=== PATIENT | male | born 1960 | race Caucasian/White ===

== ENCOUNTER 2016-05-28 08:23 | Day surgery (SDC) | payer MEDICARE ==
[2016-05-26 11:03] VITALS: BMI 33.0
[~2016-05-28 08:23] MED LIST: LACTATED RINGERS 1,000 ML IV SCH; LIDOCAINE 1% 20 ML VIAL (10MG/ML) FOR IV START INTRADERMA PRN
[2016-05-28 08:54] VITALS: RESP 18; TEMP 98
[2016-05-28] MEDS ORDERED: LIDOCAINE 1% 20 ML VIAL (10MG/ML) FOR IV START INTRADERMA ONE (08:54)
[2016-05-28] MEDS ORDERED: LACTATED RINGERS 1,000 ML IV ONE (08:54)
[2016-05-28] MEDS ORDERED: PROPOFOL 10 MG/ML 20 ML VIAL IV ONE (09:18)
[2016-05-28] MEDS ORDERED: LIDOCAINE 1% INJ 10MG/ML (20 ML MDV) ONE (09:18)
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
--- NOTE | 2016-05-28 09:39 | P.OP ---
Date of Procedure: 05/28/16 Preoperative Diagnosis: Screening colonoscopy Postoperative Diagnosis: Diverticulosis Rectal polyp Procedure(s) Performed: Colonoscopy Anesthesia: MAC Surgeon: Nelson Doe Pathology: other (Rectal polyp) Condition: stable Disposition: PACU Description of Procedure: The patient's placed on the endoscopy table in the lateral position. He received IV sedation. Digital rectal exam was performed which revealed no abnormalities. The flexible colonoscope was then placed patient anus and passed throughout the entire colon. The ileocecal valve was visualized. The cecum, ascending and transverse colon appeared normal. In the descending and sigmoid colon there were diverticular changes. The scope was then brought back the rectum and a peduncular polyp was visualized. This was removed with snare. Scope was then withdrawn from patient.
[2016-05-28 10:25] VITALS: BP 111/77; PULSE 67
== END 2016-05-28 10:37 | disposition home or self-care (01) ==
LOC: ORWHC2ENDO 08:23
PROVIDERS: ATTEND Surgery
DX: Z12.11 Encounter for screening for malignant neoplasm of colon (principal); K62.1 Rectal polyp; K57.30 Diverticulosis of large intestine without perforation or abscess without bleeding; I10 Essential (primary) hypertension; Z79.899 Other long term (current) drug therapy; Z87.891 Personal history of nicotine dependence
CPT/HCPCS: 45385; 88305; J2001; J2704

== ENCOUNTER 2023-12-25 22:33 | Emergency (ER) | payer MEDICARE ==
[2023-12-25 22:46] VITALS: TEMP 98.5
[2023-12-26 03:23] VITALS: RESP 18
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
[2023-12-26 05:17] VITALS: BP 106/78; PULSE 78
== END 2023-12-26 05:17 | disposition home or self-care (01) ==
LOC: EC 22:33
DX: F10.129 Alcohol abuse with intoxication, unspecified (principal)
CPT/HCPCS: 99284

== ENCOUNTER 2024-01-13 01:57 | Emergency (ER) | payer MEDICARE ==
[2024-01-13] MEDS ORDERED: LORazepam 2 MG/ML INJ IV PRN ×3 (02:05)
[2024-01-13 02:09] LABS: Glucose,Whole Blood 149 mg/dL (70-110)
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
--- NOTE | 2024-01-13 02:31 | XR ---
EXAM: XR Chest, 1 View CLINICAL HISTORY: ITS.REASON XR Reason: trauma TECHNIQUE: Frontal view of the chest. COMPARISON: No relevant prior studies available. FINDINGS: Lungs: Diminished lung volumes. No significant ulnar contusive injury with minimal curvilinear changes in the lateral right midlung zone. Pleural space: A small right pleural effusion is noted inferolaterally. No left pleural effusion. No obvious pneumothorax; evaluation is somewhat limited by supine technique. Heart: The cardiac silhouette is presumed mildly accentuated by portable technique. Suspect normal variation. Mediastinum: No mediastinal widening, accounting for obliquity. No tracheal deviation. Bones/joints: No obvious displaced right rib fracture identified. IMPRESSION: 1. A small right pleural effusion is noted inferolaterally. No left pleural effusion. No obvious pneumothorax; evaluation is somewhat limited by supine technique. 2. No obvious displaced right rib fracture identified. However, given the right pleural effusion, there is rib tenderness, dedicated rib series or cross-sectional imaging is recommended. 3. Diminished lung volumes. Minimal curvilinear presumed atelectasis in the right midlung zone. No definite pulmonary contusive injury.
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
[2024-01-13] MEDS: SODIUM CHLORIDE 0.9% 1,000 ML IV STA (02:47)
[2024-01-13 02:49] LABS: Basophils # (A) 0.1 k/uL (0-0.2); Basophils % (A) 1 %; Eosinophils # (A) 0.5 k/uL (0-0.7); Eosinophils % (A) 6 %; HGB 15.9 gm/dL (13.0-17.5); Lymphocytes # (A) 3.1 k/uL (1.0-4.8); Lymphocytes % (A) 38 %; MCH 31.1 pg (25.0-35.0); MCHC 33.8 g/dL (31.0-37.0); MCV 92.1 fL (80.0-100.0); Monocytes # (A) 0.3 k/uL (0-1.0); Monocytes % (A) 4 %; Neutrophils % (A) 49 %; Platelet Count 277 k/uL (150-450); RBC 5.11 m/uL (4.30-5.90); RDW 13.8 % (11.5-15.5); WBC 8.2 k/uL (3.8-10.6)
--- NOTE | 2024-01-13 02:53 | CT ---
EXAM: CT Head Without Intravenous Contrast CLINICAL HISTORY: trauma TECHNIQUE: Axial computed tomography images of the head/brain without intravenous contrast. CTDI is 17.2 mGy and DLP is 548.8 mGy-cm. This CT exam was performed using one or more of the following dose reduction techniques: automated exposure control, adjustment of the mA and/or kV according to patient size, and/or use of iterative reconstruction technique. COMPARISON: No relevant prior studies available. FINDINGS: Brain: Unremarkable. No hemorrhage. No significant white matter disease. No edema. Ventricles: Unremarkable. No ventriculomegaly. Bones/joints: Unremarkable. No acute fracture. Soft tissues: No significant overlying acute traumatic soft tissue abnormality. No radiopaque foreign body. Sinuses: Mucosal thickening involving the inferior frontal sinuses and several anterior ethmoid air cells. No traumatic effusions. Mastoid air cells: Unremarkable as visualized. No mastoid effusion. IMPRESSION: No acute intracranial process identified. EXAM: CT Cervical Spine Without Intravenous Contrast CLINICAL HISTORY: trauma TECHNIQUE: Axial computed tomography images of the cervical spine without intravenous contrast. CTDI is 17.2 mGy and DLP is 548.8 mGy-cm. This CT exam was performed using one or more of the following dose reduction techniques: automated exposure control, adjustment of the mA and/or kV according to patient size, and/or use of iterative reconstruction technique. COMPARISON: No relevant prior studies available. FINDINGS: Vertebrae: The vertebral bodies are intact without acute osseous traumatic injury. No anterolisthesis or retrolisthesis is identified. The facet joints are well aligned without subluxation or dislocation. The pedicles, transverse processes and spinous processes are intact. Multilevel facet hypertrophic arthropathy noted bilaterally. Discs/spinal canal/neural foramina: No acute findings. Mild chronic posterior marginal osteophytes noted at C3-C4 and C5-C6. No osseous spinal canal stenosis. Soft tissues: Unremarkable. Lung apices: The included lung apices demonstrate no evidence for acute traumatic injury. IMPRESSION: No acute osseous traumatic injury or significant abnormal alignment involving the cervical spine.
[2024-01-13 03:11] LABS: ALT 29 U/L (4-49); African American GFR (CKD) 72 (>60 ml/min/1.73 sqM); Albumin 4.2 g/dL (3.5-5.0); Anion Gap 10 mmol/L; Blood Urea Nitrogen 19 mg/dL (9-20); Calcium 8.8 mg/dL (8.4-10.2); Carbon Dioxide 21 mmol/L (22-30); Chloride 106 mmol/L (98-107); Glucose 157 mg/dL (74-99); Non-African American GFR(CKD) 62 (>60 ml/min/1.73 sqM); Sodium 137 mmol/L (137-145); Total Bilirubin 0.6 mg/dL (0.2-1.3); Total Protein 7.5 g/dL (6.3-8.2)
--- NOTE | 2024-01-13 03:15 | CT ---
EXAM: CT Chest With Intravenous Contrast CLINICAL HISTORY: trauma TECHNIQUE: Axial computed tomography images of the chest with intravenous contrast. CTDI is 18.4 mGy and DLP is 1001 mGy-cm. This CT exam was performed using one or more of the following dose reduction techniques: automated exposure control, adjustment of the mA and/or kV according to patient size, and/or use of iterative reconstruction technique. CONTRAST: 100 mL Isovue-300 COMPARISON: No relevant prior studies available. FINDINGS: Artifacts: Scatter artifact likely related to patient's arm position. Limitations: There is respiratory artifact, which degrades image quality throughout the examination. Lungs: Unremarkable. No mass. No consolidation. Pleural space: Evaluation the lungs is limited by extensive respiratory artifact. No definite pulmonary contusive injury. Curvilinear changes posteriorly on the right in the juxtapleural region with adjacent thin pleural thickening is presumed scarring. No pleural effusion or definite pneumothorax. Heart: Unremarkable. No cardiomegaly. No significant pericardial effusion. No significant coronary artery calcifications. Mediastinum: No evidence for mediastinal traumatic injury. Bones/joints: Dysmorphic appearance of the right posterior first through fifth ribs are consistent with healed rib fractures. Nonunited chronic rib fractures noted involving the posterior right sixth through eighth ribs. Chronic dysmorphic appearance is noted anteriorly on the left involving the second, fourth through eighth ribs and a chronic remote healed rib fractures noted posteriorly involving the third rib. No definite acute rib fractures. No acute thoracic vertebral body fracture noted. There is chronic anterior wedging at T7, T9 through T12 levels with resulting in accentuated kyphosis. No dislocation. Soft tissues: Unremarkable. Vasculature: The thoracic aorta is normal in caliber without dissection or aneurysm. Lymph nodes: Unremarkable. No enlarged lymph nodes. IMPRESSION: 1. There is respiratory artifact, which degrades image quality throughout the examination. 2. Chronic anterior wedge compression fractures at multiple levels of the mid to inferior thoracic spine, resulting in accentuated kyphosis. Dysmorphic appearance of the ribs consistent with previous traumatic injury. Bilaterally. No definite acute osseous traumatic injury. 3. Chronic pleural thickening with calcification and adjacent scarring of the right lower lobe. No definite acute pulmonary contusive injury. No pleural effusion or pneumothorax. EXAM: CT Abdomen and Pelvis With Intravenous Contrast CLINICAL HISTORY: trauma TECHNIQUE: Axial computed tomography images of the abdomen and pelvis with intravenous contrast. CTDI is 21.7 mGy and DLP is 1601 mGy-cm. This CT exam was performed using one or more of the following dose reduction techniques: automated exposure control, adjustment of the mA and/or kV according to patient size, and/or use of iterative reconstruction technique. CONTRAST: 100 mL Isovue-300 COMPARISON: No relevant prior studies available. FINDINGS: Limitations: There is diffuse respiratory artifact, which degrades image quality throughout the examination. Lung bases: For findings regarding the lung bases, please see the CT report of the chest performed concurrently. ABDOMEN: Liver: The liver appears intact, accounting for respiratory artifact. Gallbladder and bile ducts: Unremarkable. No calcified stones. No ductal dilation. Pancreas: The pancreas appears intact. No ductal dilation. Spleen: The spleen is intact without definite traumatic injury. Adrenals: Unremarkable. No mass. Kidneys and ureters: Unremarkable. No solid mass. No hydronephrosis. Stomach and bowel: Nonspecific fluid-filled small bowel loops in the left upper quadrant noted. No bowel obstruction. No definite acute traumatic bowel injury. No obvious significant asymmetric mucosal thickening. PELVIS: Appendix: Not identified/evaluated. Bladder: The bladder is fully distended without evidence for acute traumatic injury. Reproductive: Unremarkable as visualized. ABDOMEN and PELVIS: Intraperitoneal space: Unremarkable. No free air. No significant fluid collection. Retroperitoneal space: No retroperitoneal hematoma. Bones/joints: The lumbar vertebral bodies are intact without acute traumatic injury. Remote well corticated avulsion fractures are noted involving the right L3 and L4 transverse processes. The pelvic bones and proximal femurs are intact. Soft tissues: No significant overlying acute traumatic soft tissue abnormality. Vasculature: The aorta is normal in caliber without dissection or aneurysm. Lymph nodes: Unremarkable. No enlarged lymph nodes. Other findings: Scatter. IMPRESSION: 1. There is diffuse respiratory artifact, which degrades image quality throughout the examination. 2. No evidence for significant acute traumatic injury to the abdomen or pelvis.
[2024-01-13 03:20] LABS: AST 37 U/L (17-59); Alcohol 262 mg/dL; Alkaline Phosphatase 72 U/L (38-126); Potassium 4.2 mmol/L (3.5-5.1)
--- NOTE | 2024-01-13 03:27 | CT ---
EXAM: CT Thoracic Spine Without Intravenous Contrast CLINICAL HISTORY: trauma TECHNIQUE: Axial computed tomography images of the thoracic spine without intravenous contrast. CTDI is 0 mGy and DLP is 0 mGy-cm. This CT exam was performed using one or more of the following dose reduction techniques: automated exposure control, adjustment of the mA and/or kV according to patient size, and/or use of iterative reconstruction technique. COMPARISON: No relevant prior studies available. FINDINGS: Vertebrae: No acute thoracic vertebral body fracture noted. There is chronic anterior wedging at T7, T9 through T12 levels with resulting in accentuated kyphosis. The pedicles and posterior elements are unremarkable. Discs/spinal canal/neural foramina: No acute findings. Anterior hypertrophic osteophyte changes noted throughout thoracic spine. No spinal canal stenosis. Other bones/joints: Incidental remote nonunited right sixth through eighth rib fractures. . Soft tissues: No significant acute traumatic paraspinal soft tissue abnormality identified. IMPRESSION: No acute osseous traumatic injury or significant abnormal alignment involving the thoracic spine. Remote anterior wedge compression fractures at T7 and T9-T12 levels, resulting in accentuated kyphosis. Multilevel degenerative changes. EXAM: CT Lumbar Spine Without Intravenous Contrast CLINICAL HISTORY: trauma TECHNIQUE: Axial computed tomography images of the lumbar spine without intravenous contrast. CTDI is 0 mGy and DLP is 0 mGy-cm. This CT exam was performed using one or more of the following dose reduction techniques: automated exposure control, adjustment of the mA and/or kV according to patient size, and/or use of iterative reconstruction technique. COMPARISON: No relevant prior studies available. FINDINGS: Vertebrae: The lumbar vertebral body heights are maintained. No acute osseous traumatic injury. Incidental 1-2 mm retrolisthesis of L4 on L5. The pedicles, facets, left, transverse processes and spinous processes are intact. Remote lateral motion injuries are noted involving the L3 and L4 right transverse processes. Discs/spinal canal/neural foramina: No acute findings. Degenerative changes, most notable at L4-L5 level. No spinal canal stenosis. Soft tissues: No acute traumatic paraspinal soft tissue abnormality identified. IMPRESSION: No acute osseous traumatic injury or significant abnormal alignment involving the lumbar spine. Remote avulsion fractures involving the lateral aspect of the right L3 and L4 transverse processes.
[2024-01-13 03:28] LABS: INR 0.9 (<1.2); Prothrombin Time 9.9 sec (10.0-12.5)
[2024-01-13 04:39] LABS: Appearance,Urine Clear (Clear); Bilirubin,Urine Negative (Negative); Blood,Urine Negative (Negative); Color,Urine Colorless; Glucose,Urine (UA) Negative (Negative); Ketones,Urine Negative (Negative); Leukocyte Esterase,Urine Negative (Negative); Nitrite,Urine Negative (Negative); PH, Urine 5.5 (5.0-8.0); Protein,Urine Negative (Negative); Specific Gravity,Urine 1.029 (1.001-1.035); Urobilinogen,Urine <2.0 mg/dL (<2.0)
[2024-01-13 04:54] LABS: Amphetamine Screen,Urine Not Detected (NotDetected); Barbiturate Screen,Urine Not Detected (NotDetected); Benzodiazepines Screen,Urine Not Detected (NotDetected); Cocaine Screen,Urine Not Detected (NotDetected); Methadone Screen, Urine Not Detected (NotDetected); Opiate Screen,Urine Not Detected (NotDetected); Oxycodone Screen, Urine Not Detected (NotDetected); Phencyclidine Screen,Urine Not Detected (NotDetected); Tricyclic Antidepressant,Urine Not Detected (NotDetected); Urn Cannabinoid Scrn Not Detected (NotDetected)
== END 2024-01-13 04:37 | disposition home or self-care (01) ==
LOC: EC 01:57
DX: F10.129 Alcohol abuse with intoxication, unspecified (principal); I45.10 Unspecified right bundle-branch block; Z04.1 Encounter for examination and observation following transport accident; V89.2XXA Person injured in unspecified motor-vehicle accident, traffic, initial encounter; Y92.410 Unspecified street and highway as the place of occurrence of the external cause
CPT/HCPCS: 96360; 36415; 93005; 86900; 86901; 80053; 83605; 85025; 85610; 85730; 86850; 81003; 80306; 72170; 71045; 72129; 72125; 72132; 70450; 71260; 74177; 99291; G0390; G0480; Q9967; 80320